=== PATIENT | female | born 1950 | race Caucasian/White ===

== ENCOUNTER 2023-05-07 16:13 | Emergency (ER) | payer OTHER ==
[2023-05-07] MEDS ORDERED: Morphine 4 MG/ML VIAL ONE (17:54)
[2023-05-07] MEDS ORDERED: Ondansetron PF 4 MG/2 ML Vial ONE (17:56)
[2023-05-07] MEDS ORDERED: HYDROcodone/Acetaminophen 10/325 mg Tablet ONE (19:53)
== END 2023-05-07 22:34 | disposition home or self-care (01) ==
LOC: ERS 16:13
DX: M54.9 Dorsalgia, unspecified (principal); R10.31 Right lower quadrant pain; I12.9 Hypertensive chronic kidney disease with stage 1 through stage 4 chronic kidney disease, or unspecified chronic kidney disease; N18.30 Chronic kidney disease, stage 3 unspecified; E78.5 Hyperlipidemia, unspecified; Z79.899 Other long term (current) drug therapy; Z79.82 Long term (current) use of aspirin
CPT/HCPCS: 96374; 96375; J2270; J2405